=== PATIENT | female | born 1960 ===

== ENCOUNTER 2016-11-03 12:55 | Observation (INO) | payer OTHER ==
[~2016-11-03] VITALS: Ht 168.9 cm; Wt 69.6 kg
[2016-11-03] MEDS ORDERED: Atropine 1 mg/10 mL (Code) Syringe IVPUSH PRN (15:40)
[2016-11-03] MEDS ORDERED: Senna-Docusate 8.6-50 mg Tablet PO PRN (15:40)
[2016-11-03] MEDS ORDERED: Polyethylene Glycol (PEG) 17 Gm Powder PO PRN (15:40)
[2016-11-03] MEDS ORDERED: Ondansetron 2 mg/mL 2 mL Inj IVPUSH PRN (15:40)
[2016-11-03] MEDS ORDERED: Alum-Mag Hydrox-Simeth 30 mL Suspension PO PRN (15:40)
[2016-11-03 15:57] VITALS: BP 122/54; PULSE 52; RESP 11; O2SAT 100
[2016-11-03] MEDS: 0.9% Sodium Chloride 1,000 ML IV SCH (16:08)
[2016-11-03] MEDS: Sodium Chloride LOK Flush 10 mL Syringe IVFLUSH SCH ×2 (16:30→23:19)
--- NOTE | 2016-11-03 17:01 | PCM.HPMED ---
Subjective Date of Service Nov 03, 2016 Primary Provider: Admitting Physician: Vicky Mcneill DO Primary Care Physician: Colleen Vincent DO Attending Physician: Vicky Mcneill DO Chief Complaint: Chest pain History of Present Illness: 56 year old female with a hx of hypothyroidism and migraines, who comes to [facility] from [facility] ED after experiencing chest pain this morning and found to have lab values suggestive of an NSTEMI in the ED. The patient reports that this morning around 0830, while at work, she began to have chest tightness. She states that over the course of about a half an hour the tightness worsened and began to radiate to her right shoulder. She describes the pain as a band across my chest. She rates the pain at 8/10 at its worst. Nothing seemed to make the pain better or worse. She had associated nausea, diaphoresis, and difficulty taking deep breaths. She reports that she had a similar chest tightness four days ago. At that time, the pain was mild and intermittent, and resolved. She states that exertion did not seem to influence her pain. Prior to four days ago, she denies ever having any chest pain or having any history of heart problems. She is non a smoker. She notes she has been increasingly stressed at work recently. Today, after the chest pain did not resolve, she called EMS and was brought to the [facility] ED for evaluation. At the ED, her EKG showed no ST changes. First troponin was positive at 1.28, second was positive at 2.44. She was diagnosed with NSTEMI. They administered 2 doses of morphine, NTG x 3. After the nitro, she reports her chest pain improved considerably to 5/10. After the NTG she did begin to have a mild headache. She was then transferred to [facility] for further cardio workup. On admission, she complains of mild, 1/10 chest tightness that makes it difficult to take a deep breath. She is also having mild nausea. She currently denies shortness of breath or radiating pain. She denies any vision changes, weakness, dizziness, syncope, abdominal pain, vomiting, constipation, leg swelling, leg pain, or numbness. Review of Systems: Comprehensive ROS negative except as listed above in the HPI Allergies Coded Allergies: erythromycin base (Verified Allergy, Unknown, 11/03/16) Home Medications Levothyroxine 112 mcg daily Sertraline 50 mg daily Gabapentin 300 mg q8 PRN PMH Syncopal episode 09/2016 with subsequent workup at the ED that was unrevealing. Migraine headaches Hypothyroidism HTN resolved post gastric sleeve weight loss. . 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 No S3/4. Normal cap refill. +2/4 dp and radial pulses bilaterally. Respiratory: CTA bilaterally, with no wheezes, rales, or rhonchi Abdomen: Soft, normal bowel tones, nontender, nondistended Extremities: no edema, no signs of trauma Psych: Appropriate mood and affect. Neuro: CN II through XII grossly intact, sensation intact throughout. Moving all extremities well. Speech is fluent and appropriate. Skin: no bruising, erythema, or ulcers. . Lab and Diagnostics 12-lead ECG NSR with rate 55, no acute ST elevation Assessment & Plan This is a 56 year old female with a hx of hypothyroidism, who presents from the [facility] ED after an episode of severe chest pain this morning while at work. She had positive troponin in the ED (1.28 increasing to 2.44), and was transferred for further eval of NSTEMI. Likely Acute NSTEMI, POA, active. -EKG at [facility] showed no ST changes. Initial troponins positive. -Prior to transfer, Received ASA, NTGx3, MS x2 in ED at [facility]. -Trend troponin here overnight every four hours. Repeat EKG showed NSR with no ST segment changes -Morphine IV 4 mg as needed for pain. -Schedule for Echo tomorrow morning. -Schedule treadmill stress test for tomorrow. -Will start atorvastatin 40 mg. Continue on metoprolol tartrate BID (hold if HR below 55 bpm) -Continue on plavix 75 mg daily. Daily aspirin 81 mg. -Cardiology eval in the morning. -Heparin Drip -NPO after midnight Hypothyroidism, POA. chronic. Presumed Stable -Will check TSH and free T4 -Continue home levothyroxine dose Depression,POA chronic. Stable -continue on home dose of sertraline. Migraines, POA, chronic. Stable -Patient uses Gabapentin 300 mg PRN for migraines which apparently works well for her Disposition: Observation, patient will undergo cardiac evaluation and risk stratification, will likely be able to DC home with no needs if cardiac evaluation is benign Pain Evaluation: Adequate Pain Control Resuscitation Status: CPR: Attempt Resuscitation Attending Statement The patient was seen and examined together with Dr. Felipe on 11/03/16 and I agree with the history, exam and plan as outlined in the note above. Junior Felipe DO Nov 03, 2016 17:01 Vicky Mcneill DO Nov 04, 2016 14:45
[2016-11-03 17:02] LABS: BASOPHILS % (AUTO) 0.4 % (0-3); EOSINOPHILS % (AUTO) 0.6 % (0-5); MONOCYTES % (AUTO) 9.8 % (4-12); Mean Corpuscular Hemoglobin 28.2 pg (27.0-35.0); Mean Corpuscular Volume 87.8 fL (81-100); NEUTROPHILS % (AUTO) 75.5 % (40-74); Platelet Count 226 bil/L (150-400)
[2016-11-03 17:35] LABS: TROPONIN T 0.999 ug/L (0.0-0.011)
[2016-11-03] MEDS ORDERED: Heparin 5,000 Unit/mL Inj IVPUSH PRN (17:35)
[2016-11-03] MEDS ORDERED: Heparin 25K Unit/500mL 0.45 NS 25,000 UNIT in IV Premix 1 EACH IV SCH (17:35)
--- NOTE | 2016-11-03 18:47 | PCM.ADCARE ---
Advance Care Planning Note Plan: Purpose of encounter: Goals of care Parties in attendance: The patient, Dr. Mcneill, medical students (Cortez Mccormick and Gemini Arias) Diagnoses: NSTEMI Hypothyroidism Depression Migraines Decisional capacity: Good Plan: The patient is aware of the current diagnosis and would like to continue to be full code. The patient understands that this means for chest compressions , intubation, pressors, and all measures involved with CPR. CODE STATUS: Full code Time spent with advanced care planning: Greater than 16 minutes Vicky Mcneill DO Nov 03, 2016 18:47
[2016-11-03 19:25] VITALS: BP 132/59; PULSE 56; RESP 12; O2SAT 97
--- NOTE | 2016-11-03 19:33 | NUR ---
Admit.. Received this afternoon as a direct admit to 2013 from [facility] ER via [facility] ambulance. Pt arrived pain free and remains so other than a headache. Med with Tylenol. Pt has Heparin gtt ordered, but she received a dose of Lovenex at noon in ER at [facility]. Pharmacist recommends not starting heparin until 2100 tonight. Call will be placed to update night resident.
[2016-11-03] MEDS ORDERED: LEVO88TA4 PO (21:20)
[2016-11-03] MEDS ORDERED: GABA-502 PO (21:20)
[2016-11-03] MEDS ORDERED: SERT50TA PO (21:20)
[2016-11-04] VITALS (22 sets, daily range): BP systolic 103–168; BP diastolic 48–70; PULSE 42–63; RESP 14–22; O2SAT 96–100
[2016-11-04 04:29] LABS: BASOPHILS % (AUTO) 0.3 % (0-3); EOSINOPHILS % (AUTO) 1.4 % (0-5); MONOCYTES % (AUTO) 6.1 % (4-12); Mean Corpuscular Hemoglobin 28.4 pg (27.0-35.0); Mean Corpuscular Volume 88.8 fL (81-100); Platelet Count 213 bil/L (150-400)
[2016-11-04 04:55] LABS: Magnesium 2.1 mg/dL (1.6-2.6); Phosphorus 3.3 mg/dL (2.5-4.9)
[2016-11-04] MEDS: 0.9% Sodium Chloride 1,000 ML IV SCH ×2 (05:10→17:59)
[2016-11-04] MEDS ORDERED: Acetaminophen IV 1,000 MG in IV Premix 1 EACH IV ONE (05:20)
--- NOTE | 2016-11-04 06:00 | NUR ---
Cardiac/AGUILAR Around 192 pt had brief episode of CHB w/ HR down to 29-31 (lasted approx 8 secs) from HR in the 50's Sinus bradycardia, pt symptomatic with nausea and vomiting, given zofran 8mg IV, HR back in the 50's sinus bradycardia. Notified Dr Montero of low HR & MD seen pt at bedside. NPO after midnight for possible heart cath in AM. Notified attending MD of 2nd troponin result. Heparin gtt order clarified, no bolus given, started gtt@ 800units/hr, last ptt 52, rate increased to 825 units/hr, no s/s of bleeding. Pt c/o headaches, given tylenol po at noc, neurontin po and IV tylenol this am which helps w/ pain.
[2016-11-04] MEDS: Sodium Chloride LOK Flush 10 mL Syringe IVFLUSH SCH ×2 (08:30→17:59)
--- NOTE | 2016-11-04 10:48 | CONS ---
[address] [address] CONSULTATION REPORT PATIENT: SHANE CLINE : 1960 MR#: [id number] ADMIT: 11/03/2016 JOB ID: [id number] CARDIOLOGY CONSULTATION: DATE OF SERVICE: 11/04/2016 HISTORY OF PRESENT ILLNESS: This patient is a 56-year-old female with no prior cardiac history, transferred from [facility] Emergency Department with chest discomfort and evidence of a non-ST elevation MS. The patient states that on Sunday of this last week while at work she noted intermittent episodes of waxing and waning precordial chest discomfort that felt like a band around her chest. Symptoms would persist for a couple of minutes and then resolve. She sat down to rest for a period and found the discomfort seemed to persist intermittently so she went back to work and eventually the discomfort resolved. 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 Yesterday morning while she was at work, she developed similar precordial chest tightness across her chest. This persisted however instead of waxing and waning and was more severe radiating across her back and right shoulder as well. She felt clammy and nauseated with the discomfort and therefore called 911 and was taken to the emergency department at [facility]. Her evaluation there demonstrated abnormal troponin levels and the patient therefore was transferred to [facility] for evaluation. She has been treated with anti-platelet therapy in addition to heparin, low-dose beta omero therapy and nitrates. She was unable to tolerate nitrates because of a severe headache. Her discomfort persisted until yesterday evening, but gradually resolved and she has had no recurrent discomfort. She did have an episode of nausea and emesis during the night last night at which point she developed transient third degree AV block which resolved with resolution of her vomiting and was clearly vagal mediated. She is resting comfortably and feeling well this morning without any symptoms. Baseline EKG from yesterday at 9:41 a.m. is notable for what appears to be an accelerated idioventricular rhythm with resolution and eventual normal sinus rhythm. EKG has not been accomplished as of yet this morning. PAST MEDICAL HISTORY: Includes treated hypothyroidism, history of migraine headaches, and a history of prior obesity with previous gastric sleeve weight loss surgery with which she was able to lose 110 pounds. She has had previous cholecystectomy as well, and with resolution of her morbid obesity, her hypertension resolved. MEDICATIONS: Her home medications include levothyroxine, sertraline and gabapentin as needed for her headaches. ALLERGIES: Include ERYTHROMYCIN. REVIEW OF SYSTEMS: Unremarkable without history of bleeding issues. She has no upcoming surgeries. No contraindications to dual anti-platelet therapy. SOCIAL HISTORY: The patient is a nonsmoker. She lives at home. 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 PHYSICAL EXAMINATION: Shows a healthy-appearing, comfortable 56-year-old female. HEENT examination is unremarkable. Her jugular venous pressure looks normal. She is mildly bradycardic. Heart tones are somewhat distant. There is a soft systolic aortic ejection murmur at the left upper sternal border. I do not hear any ventricular gallops. Lungs are clear. Abdomen is unremarkable. Distal extremities normal without edema. Pedal pulses are normal. No significant neuromuscular abnormalities. LABORATORY DATA: Notable for elevated transaminase levels. Her troponin level is elevated as is her CK and CK-MB. Serum creatinine is normal. Blood sugar is mildly elevated with a hemoglobin A1c that is slightly elevated and her thyroid function is normal. Total cholesterol is low at 148 with an LDL cholesterol of 67, and this is without any statin medications. IMPRESSION: The patient clearly has an acute coronary syndrome with non-ST elevation myocardial infarction. She is clinically stable with no high risk indicators at this point, and a fairly benign cardiac exam. An echocardiogram will be done later today. A stress test is certainly not needed and this patient will be scheduled for diagnostic coronary artery angiography this weekend if there is a need to call the [employer] in or if the issue is urgent. Otherwise we will schedule the procedure for Sunday if she remains stable and no other urgent interventions are needed over the weekend.
[2016-11-04] MEDS ORDERED: 0.9% Sodium Chloride 1,000 ML ONE (12:29)
[2016-11-04] MEDS ORDERED: Nitroglycerin 50,000 mcg/250 mL D5W Premix IV ONE (12:29)
[2016-11-04] MEDS ORDERED: Heparin 1,000 Units/500 mL NS Premix IV ONE (12:29)
[2016-11-04] MEDS ORDERED: Heparin 10,000 Unit/1,000 mL NS Premix IV ONE ×2 (12:29→12:42)
[2016-11-04] MEDS ORDERED: Heparin 1,000 Unit/mL 10 mL Inj ONE (12:29)
--- NOTE | 2016-11-04 12:47 | NUR ---
Chest pain: @ 1135 patient reported 4/10 CP after ambulating to [facility]. Pt placed on 2L NC, Stat EKG was ordered and reviewed by Dr Holt and Hospitalist. Nitro sublingual X2 given. Morphine 2mg IVP administered X2 patient states pain is better and tolerating 2/[address] Jackson at bedside assessing pt at this time. Rec'd call from Cath team and stated they would be up shortly. Pt on telemetry and close monitoring in place.
--- NOTE | 2016-11-04 12:56 | NUR ---
Off unit to mobile home laborer
[2016-11-04] MEDS ORDERED: fentaNYL-PF 50 mCg/mL 2 mL Inj ONE (13:05)
[2016-11-04] MEDS ORDERED: Atropine 1 mg/10 mL (Code) Syringe IVPUSH PRN (14:55)
[2016-11-04] MEDS ORDERED: 0.9% Sodium Chloride 250 ML BOLUS IV PRN (14:55)
[2016-11-04] MEDS ORDERED: 0.9% Sodium Chloride 400 ML (4 HRS) IV ONE (14:55)
[2016-11-04] MEDS ORDERED: Sodium Chloride LOK Flush 10 mL Syringe IVFLUSH PRN (14:55)
--- NOTE | 2016-11-04 15:09 | NUR ---
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 She had diagnostic heart cath and has a right groin site with starclose. VS have been stable, HR remains SR in the 50's. Groin site CDI no sign of hematoma or bleeding. at bedside and MD was able to update both pt and her on the results and plan of care.
--- NOTE | 2016-11-04 15:56 | CS94 ---
[address] [address] DIAGNOSTIC CARDIAC CATHETERIZATION PATIENT: SHANE CLINE : 1960 MR#: [id number] ADMIT: 11/03/2016 JOB ID: [id number] SERVICE DATE: Friday, November 04, 2016 PROCEDURE NOTE -- CARDIAC CATHETERIZATION LABORATORY: PHYSICAL SECURITY MANAGER: Alfred Jackson MD PROCEDURE: Coronary angiogram -- urgent. CLINICAL DETAILS: This 56-year-old woman presents to the Cardiac Catheterization Laboratory for diagnostic coronary angiogram and consideration of PCI after she was admitted yesterday in transfer from [facility] where she had presented with a severe prolonged episode of retrosternal squeezing. The symptoms were noted to be associated with idioventricular rhythm. ECG was unremarkable. The working diagnosis was NSTEMI after troponin became elevated above 2 at the outside hospital and 0.999 here with CK total slightly elevated above 400 and CK-MB of 51. Catheterization was undertaken today urgently because she had recurrent chest discomfort. Underlying CAD risk factors include history of hypertension that resolved after gastric bypass surgery; and family history. Echocardiogram shows intact LV function with a subtle limited region of inferolateral hypokinesis. PROCEDURAL DETAILS: I met with her prior to the procedure and discussed the findings, impressions and management considerations including the recommendation to proceed to coronary angiogram urgently for definitive diagnosis and to guide treatment decisions including medical therapy; percutaneous coronary intervention (PCI); or bypass surgery if needed. We discussed the procedure including possible risks and complications. We discussed bleeding, infection, blood clots; as well as injury to nerve, artery, vein or kidney; and also arrhythmia, drug reaction; or others. We discussed treatment as needed including surgery, pacemaker, transfusion. We discussed more serious complications that are possible including stroke, heart attack, cardiac arrest, and emergency surgery including transfer for coronary bypass surgery. After discussion and questions, she signed informed consent to proceed. She was brought to the Cardiac Catheterization Laboratory where she was prepped sterilely and draped. CORONARY ANGIOGRAM: Arterial access was obtained in the right common femoral artery without difficulty using fluoroscopic localization over the femoral head; and local lidocaine anesthesia; and modified Seldinger technique to insert a 10 cm 6-Guamanian side-arm sheath. Catheters were advanced and exchanged over a long 0.035 inch J-tipped guidewire. The left coronary artery was engaged with a 6-Guamanian JL-4 diagnostic catheter. The right coronary artery was engaged with a 6-Guamanian JR-4 catheter. LV not entered. A 6-Guamanian pigtail catheter was advanced to the aortic root but would not enter the LV easily in association with her thickened and calcified aortic valve with moderate aortic stenosis by echo. Procedure without difficulty. Patient tolerated procedure well. No complications. A side-arm sheath angiogram shows adequate access in the right common femoral artery for a closure device. Arterial hemostasis was obtained without difficulty using a 6-Guamanian StarClose clip. The patient was transferred chest-pain free and in stable condition from the Catheterization Laboratory back to the CCU unit for ongoing care including by the primary hospitalist service and Cardiology. I discussed the findings, impression and management considerations with her; with her ; with Cardiology, Dr. Holt; and with the hospitalist team. FINDINGS: 1. LMCA intact. 2. LAD: Intact. The distribution includes one large high diagonal branch. 3. LCX: The left circumflex coronary artery is a large vessel. There is prominent tapering distally and the smaller distal LPL branch has two branches. The superior branch is 1 mm but has a tubular segment with an apparent 90% lesion but MAGO-3 flow. 4. RCA: Dominant. Intact. The RCA is a large vessel with a moderate sized PDA and a moderate sized but extensive RPLB distribution that reaches to the apex and lateral wall. CONCLUSIONS: Coronary angiogram -- Overall near normal coronary angiogram with atherosclerotic narrowing limited to a lesion of a very small distal branch of the left posterolateral vessel. RECOMMENDATIONS: 1. ASA -- indefinitely. 2. Consider Plavix for ACS (acute coronary syndrome). 3. Consider treatment for spasm (notes severe headache with nitrates and bradycardia that may limit beta-omero use). COMMENT: This patient had a very high preprocedure likelihood of significant coronary disease given her typical chest discomfort and elevated enzymes; although ECG was unremarkable; and echocardiogram has only a limited region of hypokinesis. The circumflex artery appears atypical but overall there is limited evidence of atherosclerotic plaquing at all. There are no lesions for revascularization or intervention. The left circumflex artery tapers prominently but the only lesion seen is in the very small left posterolateral branch. Spasm is also considered; but the circumflex did not respond to NTG 400 mcg IC.
--- NOTE | 2016-11-04 16:29 | NUR ---
Pedal pulses Pedal pulses have been 2+ since return to floor. this was not indicated on the flow sheet, but pt's pulses were checked per protocol and have remained 2+.
--- NOTE | 2016-11-04 17:10 | DRSVH ---
[facility] [address] [place] [address] Echocardiogram Report Name: SHANE CLINE Boogie e: 11/04/2016 Height: 66 in Hospital Exam Location: [facility] Weight: 158 lb Gender: Female BSA: 1.8 m2 : 1960 Age: 56 yrs BP: 126/70 mm Hg Reason For Study: Chest pain Ordering Physician: HOSPITALIST [facility] Performed By: Shirley Carmichael Referring Physician: Carolina Vincent Interpretation Summary The left ventricle is normal in size. There is mild-moderate concentric left ventricular hypertrophy. The ejection fraction is estimated to be 60-65%. There is proximal mid posteriolateral wall hypokinesis. The right ventricle is normal in size and function. The aortic valve is mildly calcified. A bicuspid aortic valve cannot be excluded. There is moderate aortic stenosis. No other echocardiographic abnormalities seen. Procedure: A two-dimensional transthoracic echocardiogram with color flow and Doppler was performed. The study quality was technically adequate. There is no prior echocardiogram noted for this patient. The patient was in sinus bradycardia with heart rates between 46-59 bpm during the exam. Left Ventricle: The left ventricle is normal in size. Left ventricular wall thickness is mildly increased. The LVOT diameter is 2.0 cm. The LVOT velocity is 1.1 m/s. There is mild-moderate concentric left ventricular hypertrophy. A false chord is noted (normal variant). The ejection fraction is estimated to be 60-65%. There is proximal mid posteriolateral wall hypokinesis. Assessment of diastolic parameters indicates normal left ventricular diastolic function and normal filling pressures. Right Ventricle: The right ventricle is normal in size and function. Atria: The left atrium is mildly dilated. Right atrial size is normal. There is no Doppler evidence for an interatrial shunt. Mitral Valve: The mitral valve is normal in structure and function. There is trace mitral regurgitation. Aortic Valve: The aortic valve is mildly calcified. A bicuspid aortic valve cannot be excluded. The peak aortic velocity is 3.2 m/sec. The aortic valve mean gradient is 23 mmHg. The aortic valve area indexed to the BSA is 0.54 . The calculated aortic valve area is 1.0 cm2. There is moderate aortic stenosis. There is trace aortic regurgitation. Tricuspid Valve: The tricuspid valve is normal in structure and function. There is a trace or physiologic amount of tricuspid regurgitation. The right ventricular systolic pressure is estimated at least 19 mmHg assuming a right atrial pressure of 3 mm Hg. Pulmonic Valve: The pulmonic valve is not well visualized. Great Vessels: The aortic root is normal size. The ascending aorta is moderately enlarged. The aortic arch is normal in size. The IVC is of normal diameter and collapses greater than 50% with a sniff. This suggests a low right atrial pressure of 3 mm Hg. Pericardium/ Pleura There is no pericardial effusion. There is no pleural effusion. MMode/2D Measurements & Calculations LVIDd: 4.6 cm RA long axis LVOT diam: 2.0 cm LVIDs: 3.0 cm LA A2 area: 20.4 cm AoV Opening FS: 36.2 % LA A4 area: 18.7 cm RA area EPSS: 0.53 cm LA length (vol) Ao root diam IVSd: 1.2 cm : 14.5 cm LVPWd: 1.1 cm LA vol: 72.7 ml RA vol Aortic Jxn: 3.1 cm LA vol index : 35.1 ml asc Aorta Diam RA : 19.4 mm2 Ao Arch Diam (Prox IVC diam: 2.0 cm Trans): 3.1 cm LV hancock. diameter/BSA LV sys. diameter/BSA RVD1 (basal) RVD2 (mid): 2.7 cm (cm/m^2): 2.6 (cm/m^2): 1.6 TAPSE: 2.4 cm Doppler Measurements & Calculations Ao V2 max MV E max kody MV E/A: 1.2 TR max kody : 319.8 cm/sec : 86.1 cm/sec Med Peak E' Kody : 202.6 cm/sec Ao max PG MV A max kody TR max PG : 40.9 mmHg : 70.8 cm/sec E/E' med: 11.2 : 16.4 mmHg Ao mean PG MV P1/2t: 50.2 msec Lat Peak E' Kody PA V2 max : 22.8 mmHg : 77.9 cm/sec LVOT Max Kody E/E' lat: 6.5 PA mean PG : 106.0 cm/sec E/e' average: 8.8 PA Accel Time RADHA(I,D): 0.97 cm : 0.14 sec sev ratio MV dec time MV P1/2t max kody Ao V2 mean LV V1 max PG : 0.17 sec : 229.1 cm/sec MVA(P1/2t): 4.4 cm2 Ao V2 VTI: 82.8 cm LV V1 VTI RADHA(V,D): 1.1 cm2 : 25.0 cm PA V2 mean RADHA indexed to BSA : 55.4 cm/sec (cm^2/m^2): 0.54 Reading Physician:05:09 PM
--- NOTE | 2016-11-04 18:14 | PCM.PNMED ---
Subjective Date of Service Nov 04, 2016 Subjective Assessment: Patient states that she continues to be asymptomatic since initial presentation. She has a sister who is a retired nurse who I conversed in the patient's room over the phone, at the patient's request. Events Overnight: Overnight the patient suffered a an episode of vomiting, which is accompanied by a short string of type III heart block noted on telemetry, however shortly after this, the patient's rhythm returned to normal sinus. She remains bradycardic. ROS: Denies fever/chills, nausea/vomiting, headache, weakness, abdominal pain, chest pain, shortness of breath, increased swelling in hands or feet. Exam Vital Signs Vital Sign - Last Date Time Temp Pulse Resp B/P Pulse Ox O2 Delivery O2 Flow Rate FiO2 11/04/16 17:30 50 22 146/56 11/04/16 16:42 36.7 98 Room Air 11/04/16 12:02 2.00 Intake and Output 11/03/16 11/03/16 11/04/16 Cumulative From/Thru 15:00 23:00 07:00 11/03/16 18:41 - 11/04/16 05:34 Intake Total 550 ml 1025 ml 1575 ml Output Total 450 ml 450 ml Balance 550 ml 575 ml 1125 ml Intake Oral 200 ml 125 ml 325 ml IV Total 350 ml 900 ml 1250 ml Output Urine Total 450 ml 450 ml Exam General: No acute distress, well-developed, well-nourished HEENT: Normocephalic, atraumatic. External ears without defect. Pupils equal, round, and reactive to light and accommodation. Anicteric sclerae, moist conjunctivae. Cardiovascular: Bradycardia with grade 4/6 systolic murmur, rubs, or gallops appreciated Pulmonary: Clear to auscultation bilaterally with no crackles, wheezes, or rhonchi. Normal respiratory effort with no use of accessory muscles. Abdomen: Bowel tones present. Soft, nontender, nondistended. Extremities: No clubbing, cyanosis, edema Skin: Normal temperature, turgor, and texture; no rash, ulcers, or subcutaneous nodules appreciated. Neurological: Cranial nerves grossly intact. Reflexes, coordination, and sensory function within normal limits. Normal muscle strength, tone, and bulk. Psychiatric: Normal mood and affect. Alert and oriented to person, place, and time IVs and Medications IV Fluids 1.5 L normal saline Medications Reviewed: Medications were reviewed in detail Medications High-risk medications include: Heparin drip Morphine Lab and Diagnostics Item Value Date Time Estimat Glomerular Filtration Rate 216 mL/min 11/04/16 0230 Glucose Level 102 mg/dL H 11/04/16 0230 Calcium Level 8.5 mg/dL 11/04/16 0230 Phosphorus Level 3.3 mg/dL 11/04/16 0230 Magnesium Level 2.1 mg/dL 11/04/16 0230 Total Bilirubin 0.5 mg/dL 11/04/16 0230 Aspartate Amino Transf (AST/SGOT) 136 U/L H 11/04/16 0230 Alanine Aminotransferase (ALT/SGPT) 99 U/L H 11/04/16 0230 Alkaline Phosphatase 50 U/L 11/04/16 0230 Total Protein 5.9 g/dL L 11/04/16 0230 Albumin 3.4 g/dL 11/04/16 0230 Triglycerides Level 51 mg/dL 11/04/16 0230 Cholesterol Level 148 mg/dL 11/04/16 0230 LDL Cholesterol, Calculated 67.800 mg/dL 11/04/16 0230 VLDL Cholesterol 10.200 mg/dL 11/04/16 0230 HDL Cholesterol 70 mg/dL 11/04/16 0230 Cholesterol/HDL Ratio 2.11 11/04/16 0230 Thyroid Stimulating Hormone (TSH) 2.010 uIU/mL 11/03/16 1600 Free Thyroxine 1.38 ng/dL 11/03/16 1600 Troponin T 1.11 ug/L *H 11/03/16 2215 Troponin T 1.00 ug/L *H 11/04/16 0416 Troponin T 0.999 ug/L *H 11/03/16 1600 Result Diagram: 11/04/16 0230 11/04/16 0230 12-lead ECG NSR with rate 55, no acute ST elevation Cardiac Echo Impressions Interpretation Summary The left ventricle is normal in size. There is mild-moderate concentric left ventricular hypertrophy. The ejection fraction is estimated to be 60-65%. There is proximal mid posteriolateral wall hypokinesis. The right ventricle is normal in size and function. The aortic valve is mildly calcified. A bicuspid aortic valve cannot be excluded. There is moderate aortic stenosis. No other echocardiographic abnormalities seen. Assessment & Plan This is a 56 year old female with a hx of hypothyroidism, who presents from the [facility] ED after an episode of severe chest pain this morning while at work. She had positive troponin in the ED (1.28 increasing to 2.44), and was transferred for further eval of NSTEMI. Likely Acute NSTEMI, POA, active. -EKG at [facility] showed no ST changes. Initial troponins positive. -Prior to transfer, Received ASA, NTGx3, MS x2 in ED at [facility]. - Troponins .999, 1.11, 1.00 - Repeat EKG showed NSR with no ST segment changes - Morphine IV 4 mg as needed for pain. - Echo shows 60-65%, aortic stenosis, mild-moderate concentric left ventricular hypertrophy. (as above) - Patient became symptomatic around noon on 11/04 and angiogram was completed at that time. No significant findings. - Per recommendations of cardiology Start atorvastatin 40 mg. Stop metoprolol tartrate BID, changed to amlodipine 5 mg Continue on plavix 75 mg daily. Daily aspirin 162 mg. DC Heparin Drip no need for stress test. Elevated liver transaminases, Present on admission, stable - Source currently unknown - Possibly due to sertraline or levothyroxine, however unlikely - Patient should follow-up with PCP especially in conjunction with statin initiation Prediabetes, POA, stable - Hemoglobin A1c 5.8. - Glucose 100-132 Normocytic anemia, present on admission, stable - Hemoglobin 11.4 - Likely delusional given increased fluid status Hypothyroidism, POA. chronic. Presumed Stable -TSH 2.0, free T4 1 0.38 -Continue home levothyroxine dose Depression,POA chronic. Stable -continue on home dose of sertraline. Migraines, POA, chronic. Stable -Patient uses Gabapentin 300 mg PRN for migraines which apparently works well for her Disposition: Observation, the patient had a cardiac cath today showing that her arterials are clear and not her heart pains are most likely from coronary vasospasms (Prinzmetal angina). The patient has been started on medications and will need to be observed one more day. If the patient continues to do well she will most likely be discharged home tomorrow. Patient will continue to be monitored for cardiac evaluation and risk stratification, will likely be able to DC home tomorrow Resuscitation Status: CPR: Attempt Resuscitation Attending Statement The patient was seen and examined together with Dr. Sesay on 11/04/16 and I have added additional information to the note above. Gokul Sesay DO Nov 04, 2016 18:14 Vicky Mcneill DO Nov 05, 2016 15:48
[2016-11-05] MEDS: Sodium Chloride LOK Flush 10 mL Syringe IVFLUSH SCH ×2 (01:00→08:08)
[2016-11-05 03:34] VITALS: BP 133/56; PULSE 53; RESP 16; O2SAT 99
[2016-11-05 04:14] LABS: BASOPHILS % (AUTO) 0.4 % (0-3); EOSINOPHILS % (AUTO) 3.1 % (0-5); Mean Corpuscular Hemoglobin 28.7 pg (27.0-35.0); Mean Corpuscular Volume 87.8 fL (81-100); NEUTROPHILS % (AUTO) 68.6 % (40-74); Platelet Count 230 bil/L (150-400)
[2016-11-05 04:30] LABS: Magnesium 1.9 mg/dL (1.6-2.6); Phosphorus 2.8 mg/dL (2.5-4.9)
[2016-11-05] MEDS: 0.9% Sodium Chloride 1,000 ML IV SCH (05:06)
[2016-11-05 05:10] VITALS: PULSE 66
--- NOTE | 2016-11-05 05:48 | NUR ---
Tele/Groin site Patient in sinus rhythm/sinus yusuf overnight. Patient asleep without incident. Right groin site soft, minimally tender, no bruising or drainage noted. Dorsalis pedis pulses 2+ bilaterally. Continue to monitor.
[2016-11-05 08:06] VITALS: BP 114/48; PULSE 63; RESP 13; O2SAT 99
[2016-11-05 08:48] VITALS: PULSE 61
--- NOTE | 2016-11-05 10:58 | PROG NOTE ---
[address] [address] PROGRESS NOTE PATIENT: SHANE VENTURA : 1960 MR#: [id number] ADMIT: 11/03/2016 JOB ID: [id number] DATE: 11/05/2016 SUBJECTIVE: The patient is doing well. She had an uneventful night last night and has had no recurrent anginal chest discomfort. OBJECTIVE: Her vital signs are stable with pulse rates in the 60s and blood pressure in the 115-130 range. Right groin site is unremarkable. ASSESSMENT AND PLAN: I spent some time reviewing with the patient the angiographic findings from yesterday and the reason angioplasty or stenting was unnecessary. We talked about the presence of atherosclerotic plaque as well as the likelihood of intermittent coronary artery spasm as a cause for her acute coronary syndrome. I have reviewed with her the benefits of anti-platelet therapy with aspirin and clopidogrel, and we also talked about the need for medication to prevent repeat coronary spasm and currently she is taking 10 mg of amlodipine, but I probably want her to go home on 5 mg of amlodipine daily and after a week or so on that dose if her blood pressure tolerates it, it could be increased to 10 mg daily. Finally we talked about the importance of statin therapy, which will reduce the likelihood of recurrent coronary artery syndrome and progressive atherosclerosis and also likely reduce coronary inflammation in the likelihood of repeat coronary spasm. Her transaminase levels are elevated abnormally and therefore will need to exercise caution and monitor her liver function tests closely as we initiate statin therapy. I have reviewed this with the house staff and the patient as well. I will ask my office to contact her to schedule a follow-up visit in [place] with myself or one of my partners sometime in the next couple of months. She may benefit from engaging in a cardiac rehab program at [facility] perhaps, and I have advised her to take a week off from work and see if she can reduce her workload some. I appreciate the opportunity of assisting with Mrs. Ventura's care and look forward to following up on her care as an outpatient.
--- NOTE | 2016-11-05 10:58 | PCM.DIMED ---
Junior Felipe DO 11/05/16 1058: Discharge Instructions Date of Service Nov 05, 2016 Dates of Hospitalization Nov 03, 2016 at 15:23 Discharge Diagnosis Discharge Diagnosis Possible Acute NSTEMI, POA, active. When you arrived we were very concerned that you might be having a heart attack; however the catheterization procedure revealed that your arteries in your heart are doing fairly well. We still cannot entirely rule out that you may have had a small heart attack, but at this point it appears more likely that you are having "Coronary Vasospasm", which means that the blood vessels in your heart will spasm and clamp down, this mimics a heart attack but is not actively dangerous. Moving forward we are going to use a medication that both relaxes your coronary arteries, and lowers your blood pressure which reduces the stress on your heart. This should help reduce your symptoms, we will also send you home with Nitroglycerin tablets, use these whenever you have chest pain to get some relief. Elevated liver transaminases, Present on admission, stable: You liver enzymes were elevated, not dangerously so, but enough that you should follow up with your primary care doctor for further evaluation as to what may be the cause of this elevation. Prediabetes, POA, stable; Continue to be disciplines with your diet, I imagine that in the past your blood sugars were much higher before you lost so much weight. Normocytic anemia, present on admission, stable: You are mildly anemic, this is very common in people who have had bariatric surgery. Hypothyroidism, POA. chronic. Presumed Stable Depression,POA chronic. Stable Migraines, POA, chronic. Stable . Medication Instructions Additional med instructions We will be adding a few medications Amlodipine 5 mg daily Nitroglycerin sub-lingual tablets, put one under your tongue is you have chest pain Atorvastatin, this is a cholesterol drug that will help reduce the risk of future heart problems. Aspirin 162 mg daily, Plavix 75 mg daily; these are anti-platelet medications that will help thin your blood to reduce the risk of heart attack in the future Test Results Test Results Cardiac catheterization procedure COMMENT: This patient had a very high preprocedure likelihood of significant coronary disease given her typical chest discomfort and elevated enzymes; although ECG was unremarkable; and echocardiogram has only a limited region of hypokinesis. The circumflex artery appears atypical but overall there is limited evidence of atherosclerotic plaquing at all. There are no lesions for revascularization or intervention. The left circumflex artery tapers prominently but the only lesion seen is in the very small left posterolateral branch. Spasm is also considered; but the circumflex did not respond to NTG 400 mcg IC. Alfred Jackson MD 11/04/16 1504 ECHO results Interpretation Summary The left ventricle is normal in size. There is mild-moderate concentric left ventricular hypertrophy. The ejection fraction is estimated to be 60-65%. There is proximal mid posteriolateral wall hypokinesis. The right ventricle is normal in size and function. The aortic valve is mildly calcified. A bicuspid aortic valve cannot be excluded. There is moderate aortic stenosis. No other echocardiographic abnormalities seen. . Diet Discharge Diet: Heart Healthy Activity Discharge Activity: Limited until seen by PCP (Take it easy for a week or so, return to work no sooner than Sunday) Call your provider Call your provider for: Fever or Chills, Shortness of breath, Bleeding, Chest pain, Vomitting, Excessive diarrhea, Weakness (unilateral) Patient Instructions Follow-up plan Please follow up with your primary care provider in 2 weeks. Follow-up Provider: Colleen Vincent DO Follow-up with PCP in: 2 weeks Vicky Mcneill DO 11/05/16 1309: Discharge Instructions Attending's Statement The patient was seen and examined together with Dr. Felipe on 11/05/16 and I agree with the history, exam and plan as outlined in the note above. Junior Felipe DO Nov 05, 2016 10:58 Vicky Mcneill DO Nov 05, 2016 13:09
[2016-11-05] MEDS ORDERED: CLOP75TA28 PO (11:04)
[2016-11-05] MEDS ORDERED: NITR0.4T SL (11:04)
[2016-11-05] MEDS ORDERED: ATOR20TA65 PO (11:04)
[2016-11-05] MEDS ORDERED: ASPI81TA3 PO (11:04)
[2016-11-05] MEDS ORDERED: AMLO5TAB2 PO (11:04)
--- NOTE | 2016-11-05 11:37 | NUR ---
Discharge Pt D/Cd home in stable condition. Reviewed new meds/follow up and groin site instructions with pt, no questions at this time. Pt has appt with primary care provider in a couple weeks already, she states. Rx hardcopies given to patient, along with handouts. TELE and PIV x2 D/Cd intact. to pick pt up, wheeled out to curb by CLOTH BOOKER.
--- NOTE | 2016-11-05 15:00 | PCM.DC.MED ---
Discharge Summary Date of Service Nov 05, 2016 Dates of Hospitalization Date of Hospital Admission Nov 03, 2016 at 15:23 Date of Discharge: Nov 05, 2016 Providers: Admitting Physician: Vicky Mcneill DO Primary Care Physician: Colleen Vincent DO Attending Physician: Vicky Mcneill DO Diagnosis at Time of Discharge Diagnosis at Time of Discharge Possible Acute NSTEMI, POA, active. When you arrived we were very concerned that you might be having a heart attack; however the catheterization procedure revealed that your arteries in your heart are doing fairly well. We still cannot entirely rule out that you may have had a small heart attack, but at this point it appears more likely that you are having "Coronary Vasospasm", which means that the blood vessels in your heart will spasm and clamp down, this mimics a heart attack but is not actively dangerous. Moving forward we are going to use a medication that both relaxes your coronary arteries, and lowers your blood pressure which reduces the stress on your heart. This should help reduce your symptoms, we will also send you home with Nitroglycerin tablets, use these whenever you have chest pain to get some relief. Elevated liver transaminases, Present on admission, stable: You liver enzymes were elevated, not dangerously so, but enough that you should follow up with your primary care doctor for further evaluation as to what may be the cause of this elevation. Prediabetes, POA, stable; Continue to be disciplines with your diet, I imagine that in the past your blood sugars were much higher before you lost so much weight. Normocytic anemia, present on admission, stable: You are mildly anemic, this is very common in people who have had bariatric surgery. Hypothyroidism, POA. chronic. Presumed Stable Depression,POA chronic. Stable Migraines, POA, chronic. Stable . Consultations Cardiology with Dr. Holt and Dr. Jackson Procedures ECG 12 Lead NSR with rate 55, no acute ST elevation Cardiac Echo Impression Interpretation Summary The left ventricle is normal in size. There is mild-moderate concentric left ventricular hypertrophy. The ejection fraction is estimated to be 60-65%. There is proximal mid posteriolateral wall hypokinesis. The right ventricle is normal in size and function. The aortic valve is mildly calcified. A bicuspid aortic valve cannot be excluded. There is moderate aortic stenosis. No other echocardiographic abnormalities seen. Reading Physician:05:09 PM . Invasive Procedures Coronary Angiography FINDINGS: 1. LMCA intact. 2. LAD: Intact. The distribution includes one large high diagonal branch. 3. LCX: The left circumflex coronary artery is a large vessel. There is prominent tapering distally and the smaller distal LPL branch has two branches. The superior branch is 1 mm but has a tubular segment with an apparent 90% lesion but MAGO-3 flow. 4. RCA: Dominant. Intact. The RCA is a large vessel with a moderate sized PDA and a moderate sized but extensive RPLB distribution that reaches to the apex and lateral wall. CONCLUSIONS: Coronary angiogram -- Overall near normal coronary angiogram with atherosclerotic narrowing limited to a lesion of a very small distal branch of the left posterolateral vessel. RECOMMENDATIONS: 1. ASA -- indefinitely. 2. Consider Plavix for ACS (acute coronary syndrome). 3. Consider treatment for spasm (notes severe headache with nitrates and bradycardia that may limit beta-omero use). COMMENT: This patient had a very high preprocedure likelihood of significant coronary disease given her typical chest discomfort and elevated enzymes; although ECG was unremarkable; and echocardiogram has only a limited region of hypokinesis. The circumflex artery appears atypical but overall there is limited evidence of atherosclerotic plaquing at all. There are no lesions for revascularization or intervention. The left circumflex artery tapers prominently but the only lesion seen is in the very small left posterolateral branch. Spasm is also considered; but the circumflex did not respond to NTG 400 mcg IC. Alfred Jackson MD 11/04/16 [id number] . Brief History Kera Ventura is a 56 year old woman with a PMH of morbid obesity since resolved following gastric banding who presented with exertional substernal chest pain with a positive and initially uptrending troponin. The patient underwent coronary angiography, and despite what all agreed would be a high pre-test probability of CAD the Cath was relatively unremarkable. Thus it appears that the patient is likely suffering from significant coronary vasospasm. Prior to DC the patient's chest pain had resolved and she had returned to more or less her baseline health with a some expected post procedural fatigue and soreness. Hospital Course This is a 56 year old female with a hx of hypothyroidism, who presents from the [facility] ED after an episode of severe chest pain this morning while at work. She had positive troponin in the ED (1.28 increasing to 2.44), and was transferred for further eval of NSTEMI. Coronary vasospasms (Prinzmetal angina) - Per recommendations of cardiology Continue atorvastatin 40 mg. Stop metoprolol tartrate BID, Continue Amlodipine 5 mg Continue on plavix 75 mg daily for one year Daily aspirin 162 mg. Possible Acute NSTEMI, POA, active. -EKG at [facility] showed no ST changes. Initial troponins positive. -Prior to transfer, Received ASA, NTGx3, MS x2 in ED at [facility]. - Initial trop elevated and uptrending - Repeat EKG showed NSR with no ST segment changes - Echo shows 60-65%, aortic stenosis, mild-moderate concentric left ventricular hypertrophy. (as above) - Patient became symptomatic around noon on 11/04 and angiogram was completed at that time. No significant findings. Elevated liver transaminases, Present on admission, stable - Source currently unknown - Possibly due to sertraline or levothyroxine, however unlikely - Alcoholic AST > ALT pattern, patient denies excessive EtOH - Patient should follow-up with PCP especially in conjunction with statin initiation Prediabetes, POA, stable - Hemoglobin A1c 5.8. - Glucose 100-132 Normocytic anemia, present on admission, stable - Hemoglobin 11.4 - Likely dilutional given increased fluid status Hypothyroidism, POA. chronic. Presumed Stable -TSH 2.0, free T4 1 0.38 -Continued home levothyroxine dose Depression,POA chronic. Stable -continued on home dose of sertraline. Migraines, POA, chronic. Stable -Patient uses Gabapentin 300 mg PRN for migraines which apparently works well for her . Exam Vital Signs (Last) Date Time Temp Pulse Resp B/P Pulse Ox O2 Delivery O2 Flow Rate FiO2 11/05/16 08:48 61 11/05/16 08:06 36.8 13 114/48 99 Room Air 11/04/16 12:02 2.00 Exam General: pleasant female, resting comfortably on the gurney, awake, no obvious distress, conversing normally HEENT: PERRLA, EOMI, nonicteric, membranes moist, autramatic, normocephalic Neck: Supple, non tender, no thyromegaly, no JVD Cardio: bradycardic, normal rhythm, with 2/6 systolic murmur. No S3/4. Normal cap refill. +2/4 dp and radial pulses bilaterally. Respiratory: CTA bilaterally, with no wheezes, rales, or rhonchi Abdomen: Soft, normal bowel tones, nontender, nondistended Extremities: no edema, no signs of trauma Psych: Appropriate mood and affect. Neuro: CN II through XII grossly intact, sensation intact throughout. Moving all extremities well. Speech is fluent and appropriate. Skin: no bruising, erythema, or ulcers. . Test 11/03/16 16:00 11/04/16 02:30 11/04/16 04:16 11/04/16 21:58 Prothrombin Time 10.7sec (8.1-12.5) Prothromb Time International Ratio 1.00ratio Hemoglobin A1c 5.8% (4.8-5.6) Total Creatine Kinase 420U/L (21-215) Creatine Kinase MB 51.1ng/mL (0.0-5.3) Creatine Kinase MB % 12.2% (0.0-5.0) Thyroid Stimulating Hormone (TSH) 2.010uIU/mL (0.450-4.500) Free Thyroxine 1.38ng/dL (0.82-1.77) Triglycerides Level 51mg/dL (0-149) Cholesterol Level 148mg/dL (100-199) LDL Cholesterol, Calculated 67.800mg/dL (0-99) VLDL Cholesterol 10.200mg/dL HDL Cholesterol 70mg/dL (>39) Cholesterol/HDL Ratio 2.11 (0.0-4.4) Troponin T 1.00ug/L (0.0-0.011) Activated Partial Thromboplast Time 25.0sec (22.8-33.0) Test 11/05/16 03:30 11/05/16 08:55 White Blood Count 7.8th/mm3 (3.8-10.1) Red Blood Count 4.35mil/mm3 (3.90-5.20) Mean Corpuscular Volume 87.8fL (81-100) Mean Corpuscular Hemoglobin 28.7pg (27.0-35.0) Mean Corpuscular Hemoglobin Concent 32.7% (32.0-37.0) Red Cell Distribution Width 13.0% (12.3-15.4) Platelet Count 230bil/L (150-400) Neutrophils (%) (Auto) 68.6% (40-74) Lymphocytes (%) (Auto) 19.8% (14-46) Monocytes (%) (Auto) 8.0% (4-12) Eosinophils (%) (Auto) 3.1% (0-5) Basophils (%) (Auto) 0.4% (0-3) Phosphorus Level 2.8mg/dL (2.5-4.9) Magnesium Level 1.9mg/dL (1.6-2.6) Total Bilirubin 0.4mg/dL (0.0-1.2) Aspartate Amino Transf (AST/SGOT) 132U/L (0-50) Alanine Aminotransferase (ALT/SGPT) 83U/L (0-32) Alkaline Phosphatase 58U/L (25-150) Total Protein 6.5g/dL (6.4-8.4) Albumin 3.6g/dL (3.4-5.0) Hemoglobin 12.7g/dL (12.0-15.6) Hematocrit 39.1% (35.0-46.0) Sodium Level 140mEq/L (134-144) Potassium Level 3.9mEq/L (3.5-5.2) Chloride Level 102mEq/L (97-108) Carbon Dioxide Level 20mmol/L (18-29) Blood Urea Nitrogen 7mg/dL (6-24) Creatinine 0.51mg/dL (0.57-1.00) Estimat Glomerular Filtration Rate 177mL/min (>59) Glucose Level 100mg/dL (60-99) Calcium Level 8.9mg/dL (8.5-10.1) Discharge Medications Discharge Medications Amlodipine (Amlodipine) 5 Mg Tablet 5 MG PO DAILY Prescribed by: GEN FELIPE DO Aspirin Chew (Aspirin Chew) 81 Mg Chew 162 MG PO DAILY Prescribed by: GEN FELIPE DO Atorvastatin Calcium (Atorvastatin Calcium) 20 Mg Tablet 40 MG PO HS Prescribed by: GEN FELIPE DO Clopidogrel (Clopidogrel) 75 Mg Tablet 75 MG PO DAILY Prescribed by: GEN FELIPE DO Levothyroxine (Levothyroxine) 88 Mcg Tablet 88 MCG PO DAILY (Reported) Sertraline HCl (Zoloft) 50 Mg Tablet 50 MG PO HS (Reported) As needed Gabapentin (Gabapentin) 300 Mg Capsule 300 MG PO TID PRN PRN migraines (Reported ) Nitroglycerin SL (Nitrostat) 0.4 Mg Tab.subl 0.4 MG SL Q5MIN PRN PRN For Chest Pain Prescribed by: GEN FELIPE, Additional med instructions We will be adding a few medications Amlodipine 5 mg daily Nitroglycerin sub-lingual tablets, put one under your tongue is you have chest pain Atorvastatin, this is a cholesterol drug that will help reduce the risk of future heart problems. Aspirin 162 mg daily, Plavix 75 mg daily; these are anti-platelet medications that will help thin your blood to reduce the risk of heart attack in the future Followup Plan Disposition: Home Follow-up plan Please follow up with your primary care provider in 2 weeks. Discharge Diet: Heart Healthy Discharge Activity: Limited until seen by PCP (Take it easy for a week or so, return to work no sooner than Sunday) Follow-up Provider: Colleen Vincent DO Follow-up with PCP in: 2 weeks Time spent Time spent planning and coordinating DC > 35 minutes Attending Statement The patient was seen and examined together with Dr. Felipe on 11/05/16 and I have added additional information to the note above. copies to: Colleen Vincent David E DO Nov 05, 2016 15:00 Vicky Mcneill DO Nov 05, 2016 16:57
[2016-11-05 15:30] VITALS: BP 122/55; PULSE 58; RESP 18; O2SAT 98
== END 2016-11-05 12:15 | disposition home or self-care (01) ==
LOC: INTOOBSV 15:23 → PCC 15:23 → CCU 15:25 → PCC 17:02 → CCU 11-04 14:15 → PCC 11-04 15:59
PROVIDERS: ADMIT Neuromusculoskeletal Medicine & OMM; ATTEND Neuromusculoskeletal Medicine & OMM
DX: R07.89 Other chest pain (principal); R74.0 Nonspecific elevation of levels of transaminase and lactic acid dehydrogenase [LDH]; R73.03 Prediabetes; D64.9 Anemia, unspecified; E03.9 Hypothyroidism, unspecified; F32.9 Major depressive disorder, single episode, unspecified; G43.909 Migraine, unspecified, not intractable, without status migrainosus; E66.01 Morbid (severe) obesity due to excess calories; Z98.84 Bariatric surgery status; Z79.82 Long term (current) use of aspirin; Z79.01 Long term (current) use of anticoagulants
CPT/HCPCS: 36415; 80048; 80053; 80061; 82550; 82553; 83036; 83735; 84100; 84439; 84443; 84484; 85014; 85018; 85025; 85610; 85730; 93005; 93454; 96374; 96375; 96376; 99152; 99153; C1760; C1769; C8929; G0378; G0379; J0131; J1644; J2250; J2270; J2405; J3010; J7030; Q9967